=== PATIENT | male | born 1975 | race Two or more races ===

== ENCOUNTER 2016-09-11 00:14 | Inpatient (IN) | payer OTHER ==
[~2016-09-11] VITALS: Ht 175.3 cm; Wt 122.5 kg
[~2016-09-11 00:14] MED LIST: METF500T PO
--- NOTE | 2016-09-11 01:50 | NUR ---
PT AMBULATORY TO ER BED 10, BB FAMILY; ABD PAIN, MID TO UPPER ABD, "FEELS LIKE SOMEONE KICKED ME" SINCE YESTERDAY. NAUSEA WITH VOMIT X 4 PT AOX4 RR EVEN AND UNLABORED. NO SOB NOTED. NAD NOTED. NO NVD AT THIS TIME. PT GOWNED AND PLACED ON MONITOR. WAITING FOR MD PHAN. URINE COLLECTED. CALLED LAB FOR AUTOMOBILE ASSEMBLY SUPERVISOR.
[2016-09-11] MEDS ORDERED: MORPHINE SULFATE INJ 2 MG/ML DISP.SYRIN IV ONE ×3 (02:00→08:00)
[2016-09-11] MEDS ORDERED: IV NS 0.9% 1,000 ML BAG IV ONE (02:00)
[2016-09-11] MEDS ORDERED: ONDANSETRON HCL/PF 4 MG/2 ML VIAL IVP ONE (02:00)
[2016-09-11 02:14] LABS: APPEARANCE,URINE CLEAR (CLEAR); BILIRUBIN,URINE NEGATIVE (NEGATIVE); BLOOD, URINE TRACE-INTA Ery/uL (NEGATIVE); COLOR,URINE YELLOW (YELLOW); KETONES,URINE NEGATIVE (NEGATIVE); LEUKOCYTE ESTERASE ,URINE NEGATIVE (NEGATIVE); NITRITE, URINE NEGATIVE (NEGATIVE); PROTEIN,URINE NEGATIVE (NEGATIVE); UGLUCOSE 3+ mg/dL (NEGATIVE); UROBILINOGEN,URINE 0.2 EU/dL (0.2)
--- NOTE | 2016-09-11 02:25 | NUR ---
PT TO CT.
[2016-09-11 02:29] LABS: BASOPHILS % (AUTO) 0.3 % (0.0-2.0); EOSINOPHILS % (AUTO) 0.2 % (0.0-6.0); HEMATOCRIT 49 % (39-51); HEMOGLOBIN 16.8 g/dL (13.5-17.5); LYMPHOCYTES # (AUTO) 1.2 /CMM (0.8-4.8); MEAN CORPUSCULAR HEMOGLOBIN 29 PG (26.0-33.0); MEAN CORPUSCULAR HGB CONC 34 g/dl (31.0-36.0); MEAN CORPUSCULAR VOLUME 85 fL (80-96); MONOCYTES # (AUTO) 0.7 /CMM (0.1-1.30); MONOCYTES % (AUTO) 5.8 % (2.0-12.0); NEUTROPHILS # (AUTO) 10.8 /CMM (1.8-8.9); NEUTROPHILS % (AUTO) 84.7 % (43.0-81.0); PLATELET COUNT (AUTO) 358 /CMM (150-450); RDW COEFFICIENT OF VARIATION 13.2 (11.5-15.0); RED BLOOD CELL COUNT(AUTO) 5.75 MIL/uL (4.5-6.0); WHITE BLOOD COUNT (AUTO) 12.8 K/uL (4.3-11.0)
[2016-09-11 02:33] LABS: BACTERIA,URINE None seen /HPF (None Seen); RBC,URINE 0-2 /HPF (0-2); SQUAMOUS EPITHELIAL CELL,UR None Seen /HPF (None Seen); WBC,URINE NONE SEEN /HPF (0-3)
--- NOTE | 2016-09-11 02:39 | NUR ---
PT RETURNED FROM CT.
[2016-09-11] MEDS ORDERED: ONDANSETRON HCL/PF 4 MG/2 ML VIAL ONE (02:41)
[2016-09-11] MEDS ORDERED: MORPHINE SULFATE INJ 4 MG/ML DISP.SYRIN ONE ×2 (02:41→07:59)
[2016-09-11 02:49] LABS: ALANINE AMINOTRANSFERASE 165 U/L (12-78); ALBUMIN 4.2 g/dL (3.4-5.0); ALKALINE PHOSPHATASE 91 U/L (46-116); ASPARTATE AMINOTRANSFERASE 224 U/L (15-37); BILIRUBIN,DIRECT 1.1 mg/dL (0.0-0.2); BILIRUBIN,TOTAL 2.2 mg/dL (0.2-1.0); CALCIUM, SERUM 9.7 mg/dL (8.5-10.1); CARBON DIOXIDE 31 mmol/L (21-32); CHLORIDE 96 mmol/L (98-107); CREATININE 0.8 mg/dL (0.6-1.3); GLUCOSE 348 mg/dL (74-106); LIPASE 82 U/L (73-393); POTASSIUM 3.7 mmol/L (3.5-5.1); SODIUM SERUM 134 mmol/L (136-145); TOTAL PROTEIN, SERUM 8.5 g/dL (6.4-8.2); UREA NITROGEN, BLOOD 5 mg/dL (7-18)
[2016-09-11 02:50] LABS: TROPONIN I < 0.017 ng/mL (0.00-0.056)
--- NOTE | 2016-09-11 04:35 | NUR ---
US TECH AT BEDSIDE
--- NOTE | 2016-09-11 05:56 | NUR ---
MARQUES [phone]
--- NOTE | 2016-09-11 06:03 | NUR ---
DR. BERGMAN AT BEDSIDE SPEAKING TO PT REGARDING PENDING RESULTS.
--- NOTE | 2016-09-11 07:10 | NUR ---
REPORT GIVEN TO STEPHANIE RAO FOR CONTINUE OF CARE.
--- NOTE | 2016-09-11 07:12 | NUR ---
CALLED [facility], SPOKE TO EVELINA, WILL FAX OVER US GALLBLADDER RESULTS.
--- NOTE | 2016-09-11 07:29 | NUR ---
DR. LAWLER SPEAKING TO PT REGARDING RESULTS.
--- NOTE | 2016-09-11 07:35 | NUR ---
CALLED DR NELIDA PARMAR SURGEON CONSULT SPOKE TO DR LAWLER
--- NOTE | 2016-09-11 07:54 | NUR ---
CALLED [facility] --- ITS DEANN PORTER / CHEI[facility]
[2016-09-11] MEDS ORDERED: LISI2.5T2 PO (08:04)
[2016-09-11 08:40] LABS: INR 0.99 (0.87-1.13); PROTHROMBIN TIME 10.6 SECS (9.5-12.7)
--- NOTE | 2016-09-11 09:00 | NUR ---
RECEIVED PATIENT FROM ER TO BED 322-2. REPORT GIVEN BY JOURNALISM INSTRUCTOR NOEL. PATIENT ADMITED WITH ABD PAIN. US ABD. SHOWING FATTY INFILTRATION OF LIVER. DISTENDED GALLBLADDER WITH CHOLITHIASIS. CXR NEGATIVE. TROP NEGATIVE. PATIENT WBC ELEVATED. ALL VS WNL. IV SITE ON R AC 18G WS N/S RUNNING AT 75ML/HR. PATIENT IS AOX4. PATIENT IS FULLY AMBULATORY. SKIN IS INTACT. BED IN THE LOWEST POSITION WITH SIDE RAILS UP X2. CALL LIGHT IN REACH. WILL CONTINUE TO MONITOR AND ASSESS PATIENT.
[2016-09-11 10:12] VITALS: BP 111/70
[2016-09-11] MEDS ORDERED: ONDANSETRON HCL/PF 4 MG/2 ML VIAL IVP PRN (12:30)
[2016-09-11] MEDS: MORPHINE SULFATE INJ 2 MG/ML DISP.SYRIN IV PRN ×2 (12:34→20:46)
[2016-09-11] MEDS: IV NS 0.9% 1,000 ML IV PRN (12:34)
[2016-09-11] MEDS: PIPERACILLIN /TAZOBACTAM 3.375 G in IV D5W 50 ML IV SCH ×2 (14:19→20:33)
[2016-09-11 16:00] VITALS: BP 121/86
--- NOTE | 2016-09-11 18:24 | NUR ---
PATIENT TAKEN TO NUCLEAR MEDICINE FOR HIDA SCAN. CONSENT FORMS SIGNED AND WITNESSED. PAIN MEDICATION HELD SINCE LAST DOSE AT 1224. PATIENT TRANSPORTED IN STABLE CONDITION WILL CONTINUE TO MONITOR AND ASSESS PATIENT.
--- NOTE | 2016-09-11 19:30 | NUR ---
MS RN OPENING NOTES: PT NOT IN ROOM. PT WENT FOR SCAN.
--- NOTE | 2016-09-11 19:42 | NUR ---
RN CLOSING NOTES PATIENT IS CURRENTLY AT NUCLEAR MEDICINE RECEIVING HIDA SCAN IN NUCLEAR MEDICINE. PATIENT REPORT GIVEN TO DISTRIBUTION COORDINATOR NURSE FOR CONTINUATION OF CARE.
[2016-09-11 20:00] VITALS: BP 113/71
--- NOTE | 2016-09-11 20:00 | NUR ---
MS RN NOTES: PT BACK FROM SCAN. PT IS AWAKE, A/O X4. PT REPORTED OF PAIN IN HIS ABDOMEN. IV SITE ON R AC 18G WS N/S RUNNING AT 75ML/HR. BED KEPT IN THE LOWEST, LOCKED, POSITION WITH SIDE RAILS UP X2. CALL LIGHT IN REACH. ZOSYN FOR 1800 WILL BE ADMINISTERED DUE TO PT BEING GONE. WILL CONTINUE TO MONITOR PT.
--- NOTE | 2016-09-11 20:46 | NUR ---
MS RN NOTES: PT COMPLAINED OF 7/10 AB PAIN. PT WAS ADMINISTERED MORPHINE IV. WILL CONTINUE TO MONITOR PT.
--- NOTE | 2016-09-11 23:18 | NUR ---
MS RN NOTES: SPOKE WITH DR. KRAUSE AND INFORMED HIM THAT HIDA WAS NEGATIVE AND IF OKAY TO RESUME PT BACK ON DIET. GOT ORDER THAT PT CAN START ON FULL LIQUIDS DIET.
[2016-09-12] MEDS: PIPERACILLIN /TAZOBACTAM 3.375 G in IV D5W 50 ML IV SCH ×4 (00:18→17:53)
[2016-09-12] MEDS: IV NS 0.9% 1,000 ML IV PRN (05:27)
--- NOTE | 2016-09-12 07:20 | NUR ---
MS RN CLOSING NOTES: ALL NEEDS WERE ATTENDED AND ANTICIPATED FOR. PT IS AWAKE, A/O X4 AND RESTING IN BED. IV SITE ON R AC 18G AND IS BEING INFUSED WITH N/S RUNNING AT 75ML/HR. BED KEPT IN THE LOWEST, LOCKED, POSITION WITH SIDE RAILS UP X2. CALL LIGHT IN REACH. ENDORSED TO AM NURSE FOR TOMASA.
[2016-09-12 07:39] LABS: BASOPHILS % (AUTO) 0.1 % (0.0-2.0); EOSINOPHILS # (AUTO) 0.2 /CMM (0.0-0.7); EOSINOPHILS % (AUTO) 3.5 % (0.0-6.0); HEMATOCRIT 43 % (39-51); HEMOGLOBIN 14.9 g/dL (13.5-17.5); LYMPHOCYTES # (AUTO) 0.9 /CMM (0.8-4.8); LYMPHOCYTES % (AUTO) 17.5 % (20.0-44.0); MEAN CORPUSCULAR HEMOGLOBIN 30 PG (26.0-33.0); MEAN CORPUSCULAR HGB CONC 34 g/dl (31.0-36.0); MEAN CORPUSCULAR VOLUME 86 fL (80-96); MONOCYTES # (AUTO) 0.5 /CMM (0.1-1.30); MONOCYTES % (AUTO) 8.9 % (2.0-12.0); NEUTROPHILS # (AUTO) 3.7 /CMM (1.8-8.9); PLATELET COUNT (AUTO) 264 /CMM (150-450); RDW COEFFICIENT OF VARIATION 13.4 (11.5-15.0); RED BLOOD CELL COUNT(AUTO) 5.02 MIL/uL (4.5-6.0); WHITE BLOOD COUNT (AUTO) 5.3 K/uL (4.3-11.0)
[2016-09-12 07:55] LABS: BILIRUBIN,TOTAL 1.6 mg/dL (0.2-1.0); CALCIUM, SERUM 8.2 mg/dL (8.5-10.1); CREATININE 0.9 mg/dL (0.6-1.3); PHOSPHORUS 2.6 mg/dL (2.5-4.9); POTASSIUM 4.2 mmol/L (3.5-5.1); TOTAL PROTEIN, SERUM 7.2 g/dL (6.4-8.2)
--- NOTE | 2016-09-12 07:55 | NUR ---
RN OPENING NOTES RECEIVED PATIENT IN BED, AWAKE, HOB ELEVATED, NO SOB OR DISTRESS NOTED. A/O X1 VERBALLY RESPONSIVE AND ABLE TO MAKE NEEDS KNOWN. IV INTACT AND PATENT. KEEP PATIENT CLEAN AND COMFORTABLE IN BED, CALL LIGHT WITHIN PATIENT REACH, WILL CONTINUE TO MONITOR ACCORDINGLY. Addendum: 09/12/16 at 0759 by KIARA DIETZ RN ALERT AND ORIENTED TIMES 4
[2016-09-12 08:00] VITALS: BP 135/80
--- NOTE | 2016-09-12 10:30 | NUR ---
RN NOTES PATIENT IS AWAKE WITH NO SOB OR DISTRESS NOTED.
--- NOTE | 2016-09-12 15:30 | NUR ---
RN NOTES PATIENT IS WALKING AROUND THE FLOOR WITH NO SIGNS OF PAIN OR DISTRESS NOTED.
[2016-09-12 16:00] VITALS: BP 142/86
--- NOTE | 2016-09-12 19:30 | NUR ---
MS RN NOTES RECEIVED PT SITTING UP IN BED, WITH FAMILY AT BEDSIDE. PT IS A/O X 4. VERBALLY RESPONSIVE. NO DISTRESS, NO SOB NOTED. RESPIRATION IS EVEN AND UNLABORED. IV SITE ON LEFT AC INTACT AND PATENT, WITH NO S/ SOF INFILTRATION AT THIS TIME. IVF INFUSING WELL. PT IS AMBULATORY AMBULATORY AND CONTINENT OF BOWEL AND BLADDER. DENIES ANY PAIN OR DISCOMFORT AT THIS TIME. PLAN OF CARE DISCUSSED WITH THE PT, VERBALIZED UNDERSTANDING. ALL NEEDS ATTENDED AND MET. KEPT COMFORTABLE. CALL LIGHT WITHIN REACH. WILL CONTINUE TO MONITOR.
--- NOTE | 2016-09-12 19:58 | NUR ---
RN NOTES ALL NEEDS PROVIDED, ATTENDED, AND ANTICIPATED. KEPT PATIENT CLEAN AND COMFORTABLE IN BED. CALL LIGHT WITHIN PATIENT REACH, WILL CONTINUE TO MONITOR ACCORDINGLY. ENDORSED TO NEXT SHIFT RN TO CONTINUE CARE.
[2016-09-12 20:00] VITALS: BP_SYST 131; BP_SYST 145; BP_DIAS 85; BP_DIAS 90
[2016-09-12] MEDS ORDERED: HYDROCODONE/APAP 5/325MG 1 EACH TABLET PO ONE (21:00)
--- NOTE | 2016-09-13 | NUR ---
PT STARTED ON NPO FOR LAP NATHANIEL , PT VERBALIZED UNDERSTANDING. CONSENT SIGNED.
[2016-09-13] MEDS: PIPERACILLIN /TAZOBACTAM 3.375 G in IV D5W 50 ML IV SCH ×5 (00:09→23:48)
[2016-09-13] MEDS: IV NS 0.9% 1,000 ML IV PRN (00:21)
[2016-09-13] MEDS ORDERED: LIDOCAINE 1% INJ 50 ML MDV IJ ONE (06:44)
[2016-09-13 06:55] VITALS: BP 128/78
--- NOTE | 2016-09-13 06:58 | NUR ---
MS RN NOTES PT SITTING UP IN BED, PT IS A/O X 4. VERBALLY RESPONSIVE. NO DISTRESS, NO SOB NOTED. RESPIRATION IS EVEN AND UNLABORED. IV SITE ON RAC INTACT AND PATENT, WITH NO S/ SOF INFILTRATION AT THIS TIME. IVF INFUSING WELL. PT IS AMBULATORY AND CONTINENT OF BOWEL AND BLADDER. DENIES ANY PAIN OR DISCOMFORT AT THIS TIME. ALL NEEDS ATTENDED AND MET. FOR SX TODAY . PT VERBALIZED UNDERSTANDING. KEPT COMFORTABLE. CALL LIGHT WITHIN REACH. WILL ENDORSE TO NEXT SHIFT FOR TOMASA.
[2016-09-13] MEDS ORDERED: METOCLOPRAMIDE HCL 10 MG/2 ML VIAL ONE (07:09)
[2016-09-13] MEDS ORDERED: MIDAZOLAM HCL 2 MG/2ML VIAL ONE (07:09)
[2016-09-13] MEDS ORDERED: FENTANYL PF 250MCG/5ML AMPUL ONE (07:09)
[2016-09-13] MEDS ORDERED: ROCURONIUM BROMIDE 50 MG/5 ML ONE (07:10)
[2016-09-13] MEDS ORDERED: FENTANYL PF 100MCG/2ML AMPUL ONE (07:10)
--- NOTE | 2016-09-13 07:10 | NUR ---
PT WAS PICKED BY OR STAFF FOR SURGERY. PT IS A/O X 4 IN STABLE CONDITION.
[2016-09-13] MEDS ORDERED: SUCCINYLCHOLINE CHLORIDE 20 MG/ML VIAL ONE (07:11)
--- NOTE | 2016-09-13 08:10 | NUR ---
RN NOTES PATIENT WENT DOWN FOR SURGERY.
[2016-09-13] MEDS ORDERED: IOHEXOL 240MG/ML 50 ML IV ONE (08:24)
[2016-09-13] MEDS ORDERED: HYDROMORPHONE 2 MG/1 ML SDV ONE (10:05)
[2016-09-13] MEDS ORDERED: SENNOSIDES 8.6 MG TABLET PO PRN (10:30)
[2016-09-13] MEDS ORDERED: DOCUSATE SODIUM 250 MG CAPSULE PO PRN (10:30)
[2016-09-13] MEDS ORDERED: ACETAMINOPHEN 325 MG TABLET PO PRN (10:30)
[2016-09-13] MEDS ORDERED: HYDROMORPHONE 1 MG/1 ML DISP.SYRIN ONE (10:31)
[2016-09-13] MEDS: HYDROMORPHONE INJ 2 MG/ML DISP.SYRIN IV PRN ×2 (11:26→14:17)
[2016-09-13 11:30] VITALS: BP 168/98
[2016-09-13] MEDS: HYDROCODONE/APAP 5/325MG 1 EACH TABLET PO PRN ×3 (12:23→21:46)
[2016-09-13] MEDS: ENOXAPARIN SODIUM 40 MG/0.4 ML DISP.SYRIN SQ SCH (12:26)
[2016-09-13 15:28] LABS: EOSINOPHILS % (AUTO) 0.1 % (0.0-6.0); HEMATOCRIT 47 % (39-51); HEMOGLOBIN 15.9 g/dL (13.5-17.5); LYMPHOCYTES # (AUTO) 0.3 /CMM (0.8-4.8); MEAN CORPUSCULAR HEMOGLOBIN 29 PG (26.0-33.0); MEAN CORPUSCULAR HGB CONC 34 g/dl (31.0-36.0); MEAN CORPUSCULAR VOLUME 86 fL (80-96); MONOCYTES % (AUTO) 0.5 % (2.0-12.0); NEUTROPHILS # (AUTO) 6.8 /CMM (1.8-8.9); NEUTROPHILS % (AUTO) 95.4 % (43.0-81.0); PLATELET COUNT (AUTO) 339 /CMM (150-450); RDW COEFFICIENT OF VARIATION 13.4 (11.5-15.0); RED BLOOD CELL COUNT(AUTO) 5.47 MIL/uL (4.5-6.0); WHITE BLOOD COUNT (AUTO) 7.1 K/uL (4.3-11.0)
[2016-09-13 15:52] LABS: ALBUMIN 3.4 g/dL (3.4-5.0); BILIRUBIN,TOTAL 0.7 mg/dL (0.2-1.0); CALCIUM, SERUM 8.5 mg/dL (8.5-10.1); MAGNESIUM 1.6 mg/dL (1.8-2.4); PHOSPHORUS 4.1 mg/dL (2.5-4.9); POTASSIUM 4.3 mmol/L (3.5-5.1); TOTAL PROTEIN, SERUM 8.3 g/dL (6.4-8.2)
[2016-09-13 16:00] VITALS: BP 166/97
--- NOTE | 2016-09-13 16:10 | NUR ---
RN NOTES PAGED DR. MENJIVAR AND RECEIVED NEW ORDERS.
[2016-09-13] MEDS: HYDROMORPHONE 1 MG/1 ML DISP.SYRIN IV PRN ×2 (16:23→19:45)
[2016-09-13] MEDS ORDERED: *INSULIN REGULAR(HUMULIN R)HUM 100 UNIT/ML VIAL SQ PRN (16:30)
[2016-09-13] MEDS ORDERED: DEXTROSE 50%-WATER 50 ML DISP.SYRIN IV PRN (16:30)
[2016-09-13] MEDS: BLOOD SUGAR DIAGNOSTIC 1 EACH STRIP VI SCH ×2 (17:39→21:49)
[2016-09-13] MEDS: INSULIN REGULAR, HUMAN 100 UNIT/ML 3 ML VIAL SQ PRN (17:41)
--- NOTE | 2016-09-13 19:10 | NUR ---
MS RN NOTES RECEIVED PT IN BED, A/O X 4. VERBALLY RESPONSIVE. NO DISTRESS, NO SOB NOTED. RESPIRATION IS EVEN AND UNLABORED. IV SITE ON LEFT AC INTACT AND PATENT, WITH NO S/ SOF INFILTRATION AT THIS TIME. IVF INFUSING WELL. PT AMBULATORY. DENIES ANY PAIN OR DISCOMFORT AT THIS TIME. ON S/P LAP NATHANIEL WITH 3 INCISIONS ON ABDOMEN, NO BLEEDING, NO S/S OF INFECTION. ALL NEEDS ATTENDED AND MET. KEPT COMFORTABLE. CALL LIGHT WITHIN REACH. WILL CONTINUE TO MONITOR.
[2016-09-13 20:08] VITALS: BP 195/104
[2016-09-13] MEDS ORDERED: HYDROCODONE/APAP 5/325MG 1 EACH TABLET ONE (21:41)
--- NOTE | 2016-09-13 23:54 | NUR ---
TRANSFUSED 1 UNIT OF PRBC, WITH NO ADVERSE REACTIONS NOTED. PT STABLE. WILL CONT TO MONITOR. Addendum: 09/14/16 at 0329 by ANDREW KEATING RN TAWANDA: INCORRECT PATIENT DOCUMENTATION
[2016-09-14] MEDS: HYDROMORPHONE 1 MG/1 ML DISP.SYRIN IV PRN ×3 (00:08→08:04)
[2016-09-14] MEDS ORDERED: HYDROCODONE/APAP 5/325MG 1 EACH TABLET ONE ×2 (01:56→06:39)
[2016-09-14] MEDS: HYDROCODONE/APAP 5/325MG 1 EACH TABLET PO PRN ×2 (01:57→06:43)
[2016-09-14] MEDS: IV NS 0.9% 1,000 ML IV PRN (04:08)
[2016-09-14 05:48] LABS: BASOPHILS % (AUTO) 0.1 % (0.0-2.0); EOSINOPHILS % (AUTO) 0.3 % (0.0-6.0); HEMATOCRIT 45 % (39-51); HEMOGLOBIN 15.5 g/dL (13.5-17.5); LYMPHOCYTES # (AUTO) 1.4 /CMM (0.8-4.8); LYMPHOCYTES % (AUTO) 15.8 % (20.0-44.0); MEAN CORPUSCULAR HEMOGLOBIN 30 PG (26.0-33.0); MEAN CORPUSCULAR HGB CONC 35 g/dl (31.0-36.0); MEAN CORPUSCULAR VOLUME 86 fL (80-96); MONOCYTES # (AUTO) 0.8 /CMM (0.1-1.30); MONOCYTES % (AUTO) 8.8 % (2.0-12.0); NEUTROPHILS # (AUTO) 6.8 /CMM (1.8-8.9); PLATELET COUNT (AUTO) 347 /CMM (150-450); RDW COEFFICIENT OF VARIATION 13.1 (11.5-15.0)
[2016-09-14] MEDS: PIPERACILLIN /TAZOBACTAM 3.375 G in IV D5W 50 ML IV SCH ×3 (05:54→17:19)
[2016-09-14] MEDS: BLOOD SUGAR DIAGNOSTIC 1 EACH STRIP VI SCH ×2 (06:04→11:31)
[2016-09-14 06:05] LABS: ALBUMIN 3.1 g/dL (3.4-5.0); BILIRUBIN,TOTAL 0.6 mg/dL (0.2-1.0); CALCIUM, SERUM 8.9 mg/dL (8.5-10.1); CREATININE 0.7 mg/dL (0.6-1.3); MAGNESIUM 1.8 mg/dL (1.8-2.4); PHOSPHORUS 3.1 mg/dL (2.5-4.9); POTASSIUM 3.8 mmol/L (3.5-5.1); TOTAL PROTEIN, SERUM 7.7 g/dL (6.4-8.2)
[2016-09-14] MEDS: INSULIN REGULAR, HUMAN 100 UNIT/ML 3 ML VIAL SQ PRN ×3 (06:10→17:31)
--- NOTE | 2016-09-14 06:53 | NUR ---
MS RN NOTES PT IN BED, AWAKE, WATCHING TV AT THIS TIME. VERBALLY RESPONSIVE. A/O X 4. VERBALLY RESPONSIVE. NO DISTRESS, NO SOB NOTED. RESPIRATION IS EVEN AND UNLABORED. CURRENT DIET TAM WELL. IV SITE ON LEFT AC INTACT AND PATENT, WITH NO S/ S OF INFILTRATION AT THIS TIME. IVF INFUSING WELL. PT AMBULATORY. DENIES ANY PAIN OR DISCOMFORT AT THIS TIME. ON S/P LAP NATHANIEL WITH 3 INCISIONS ON ABDOMEN, NO BLEEDING, NO S/S OF INFECTION. ALL NEEDS ATTENDED AND MET. KEPT COMFORTABLE. CALL LIGHT WITHIN REACH. WILL ENDORSE TO NEXT SHIFT FOR TOMASA.
--- NOTE | 2016-09-14 07:09 | NUR ---
RN MS OPENING NOTES RECEIVED PATIENT IN BED, AWAKE, HOB ELEVATED, NO SOB OR DISTRESS NOTED. A/O X4 VERBALLY RESPONSIVE AND ABLE TO MAKE NEEDS KNOWN. IV INTACT AND PATENT. KEEP PATIENT CLEAN AND COMFORTABLE IN BED, CALL LIGHT WITHIN PATIENT REACH, WILL CONTINUE TO MONITOR ACCORDINGLY.
[2016-09-14 08:00] VITALS: BP 162/99
[2016-09-14] MEDS: ENOXAPARIN SODIUM 40 MG/0.4 ML DISP.SYRIN SQ SCH (08:03)
--- NOTE | 2016-09-14 09:35 | NUR ---
RN NOTES PATIENT IS LYING DOWN IN BED WITH NO S/S OF INFECTION. SURGICAL SITE HAS NO BLEEDING REDNESS. WILL CONTINUE MONITORING ACCORDINGLY.
--- NOTE | 2016-09-14 11:50 | NUR ---
RN NOTES PATIENT IS WITH VISITOR AT BEDSIDE WITH NO SOB OR DISTRESS NOTED.
[2016-09-14] MEDS ORDERED: hydrALAZINE HCL 25 MG TABLET PO PRN (12:30)
[2016-09-14] MEDS ORDERED: BISACODYL (5 MG) 5 MG TABLET.DR PO PRN (12:30)
[2016-09-14] MEDS ORDERED: POLYETHYLENE GLYCOL 3350 17 GM POWD.PACK PO PRN (12:30)
[2016-09-14] MEDS ORDERED: DEXTROSE 50%-WATER 50 ML DISP.SYRIN IV PRN (12:30)
[2016-09-14] MEDS ORDERED: *INSULIN REGULAR(HUMULIN R)HUM 100 UNIT/ML VIAL SQ PRN (12:30)
[2016-09-14] MEDS: BLOOD SUGAR DIAGNOSTIC 1 EACH STRIP IN SCH ×3 (12:48→21:58)
[2016-09-14] MEDS: METFORMIN 500 MG TABLET PO SCH ×2 (12:48→16:37)
[2016-09-14] MEDS: LISINOPRIL (20MG) 20 MG TABLET PO SCH (12:49)
[2016-09-14] MEDS ORDERED: HYDROMORPHONE 1 MG/1 ML DISP.SYRIN IV PRN (13:00)
--- NOTE | 2016-09-14 14:42 | NUR ---
RN NOTES PATIENT IS AMBULATING IN THE HALLWAY WITH NO SOB OR DISTRESS NOTED.
[2016-09-14 16:00] VITALS: BP 168/99
[2016-09-14] MEDS: HYDROCODONE/APAP 10/325MG 1 EA TABLET PO PRN ×2 (17:32→21:37)
[2016-09-14 20:05] VITALS: BP 145/97
[2016-09-15] MEDS: PIPERACILLIN /TAZOBACTAM 3.375 G in IV D5W 50 ML IV SCH ×2 (01:04→06:10)
[2016-09-15] MEDS: HYDROCODONE/APAP 10/325MG 1 EA TABLET PO PRN ×3 (01:05→10:19)
[2016-09-15] MEDS: BLOOD SUGAR DIAGNOSTIC 1 EACH STRIP IN SCH (06:10)
[2016-09-15 06:14] LABS: BASOPHILS % (AUTO) 0.2 % (0.0-2.0); EOSINOPHILS # (AUTO) 0.1 /CMM (0.0-0.7); EOSINOPHILS % (AUTO) 2.1 % (0.0-6.0); HEMATOCRIT 44 % (39-51); LYMPHOCYTES # (AUTO) 1.9 /CMM (0.8-4.8); LYMPHOCYTES % (AUTO) 28.8 % (20.0-44.0); MEAN CORPUSCULAR HEMOGLOBIN 29 PG (26.0-33.0); MEAN CORPUSCULAR HGB CONC 34 g/dl (31.0-36.0); MEAN CORPUSCULAR VOLUME 86 fL (80-96); MONOCYTES # (AUTO) 0.7 /CMM (0.1-1.30); MONOCYTES % (AUTO) 10.3 % (2.0-12.0); NEUTROPHILS # (AUTO) 3.9 /CMM (1.8-8.9); NEUTROPHILS % (AUTO) 58.6 % (43.0-81.0); PLATELET COUNT (AUTO) 326 /CMM (150-450); RDW COEFFICIENT OF VARIATION 13.3 (11.5-15.0); WHITE BLOOD COUNT (AUTO) 6.6 K/uL (4.3-11.0)
[2016-09-15] MEDS: INSULIN REGULAR, HUMAN 100 UNIT/ML 3 ML VIAL SQ PRN (06:25)
--- NOTE | 2016-09-15 06:32 | NUR ---
MS RN NOTES AWAKE & RESPONSIVE. NOT IN ANY DISTRESS. NO SOB NOTED. DENIES ANY PAIN OR DISCOMFORT AT THIS TIME. WITH IV-HL PATENT & INTACT. MONITORED ACCORDINGLY. CALL LIGHT WITHIN REACH. BED IN LOWEST POSITION. SR UP X 2 FOR SAFETY. WILL ENDORSE TO NEXT SHIFT.
[2016-09-15 06:43] LABS: CALCIUM, SERUM 8.9 mg/dL (8.5-10.1); MAGNESIUM 1.6 mg/dL (1.8-2.4); PHOSPHORUS 4.2 mg/dL (2.5-4.9); POTASSIUM 4.2 mmol/L (3.5-5.1)
--- NOTE | 2016-09-15 07:10 | NUR ---
MS RN OPENING RECEIVED PATIENT A/OX4 DENIES SOB, DIFFICULTY BREATHING AND PAIN MANAGED WITH PRN NORCO. PATIENT PASSING GAS AND HAVING WNL BM. NO COMPLICATIONS NO COMPLAINTS FROM PATIENT. PATIENT STATES HE WANTS TO BE DC'D [facility]. WILL NOTIFY MD. ALL NEEDS IN REACH, ICE ON STOMACH AND WILL ROUND Q2H OR LESS PER NEEDS.
--- NOTE | 2016-09-15 07:39 | NUR ---
MS RN NOTES NOTIFIED MD GARCIA PATIENT WOULD LIKE TO GO [facility]. AWARE. NOTIFIED MD PATIENT MAG LOW 1.6.PER MD GIVE 800MG PO MAG OXIDE ONCE
[2016-09-15 08:00] VITALS: BP 140/87
[2016-09-15] MEDS ORDERED: MAGNESIUM OXIDE 400 MG TABLET PO ONE (08:00)
[2016-09-15 08:25] VITALS: BP 140/87
[2016-09-15] MEDS: LISINOPRIL (20MG) 20 MG TABLET PO SCH (08:25)
[2016-09-15] MEDS: METFORMIN 500 MG TABLET PO SCH (08:25)
[2016-09-15] MEDS: ENOXAPARIN SODIUM 40 MG/0.4 ML DISP.SYRIN SQ SCH (08:29)
--- NOTE | 2016-09-15 10:22 | NUR ---
MS RN NOTES DR GARCIA AT BEDSIDE
--- NOTE | 2016-09-15 11:14 | NUR ---
MS RN NOTES DR GARCIA WROTE RX FOR NORCO AND GAVE TO PATIENT. PATIENT EDUCATED ON DC MATERIAL AND ALL PRINTOUTS.IV REMOVED WITH PRESSURE AND DRESSING APPLIED NO BLEEDING NOTED. PATIENT SIGNED DC MATERIAL AND STATED UNDERSTANDING. ALL BELONGINGS ACCOUNTED FOR AND SIGNED. PATIENT SON TO PICK HIM UP.
--- NOTE | 2016-09-15 11:40 | NUR ---
MS MAITRE D' PATIENT LEFT IN STABLE CONDITION NO COMPLICATIONS AND PICKED UP BY SON.
== END 2016-09-15 11:40 | disposition home or self-care (01) | DRG 417 ==
LOC: ER 00:14 → MED 08:38
PROVIDERS: ADMIT Nurse Practitioner Acute Care; ATTEND Nurse Practitioner Acute Care
PROC: 0FB04ZX Excision of Liver, Percutaneous Endoscopic Approach, Diagnostic (ICD-10-PCS; principal; 2016-09-13 08:15)
PROC: BF131ZZ Fluoroscopy of Gallbladder and Bile Ducts using Low Osmolar Contrast (ICD-10-PCS; principal; 2016-09-13 08:15)
PROC: 0FT44ZZ Resection of Gallbladder, Percutaneous Endoscopic Approach (ICD-10-PCS; principal; 2016-09-13 08:15)
DX: K80.00 Calculus of gallbladder with acute cholecystitis without obstruction (principal); E43 Unspecified severe protein-calorie malnutrition; E87.1 Hypo-osmolality and hyponatremia; Z68.41 Body mass index [BMI] 40.0-44.9, adult; I10 Essential (primary) hypertension; E66.01 Morbid (severe) obesity due to excess calories; E11.65 Type 2 diabetes mellitus with hyperglycemia; K76.0 Fatty (change of) liver, not elsewhere classified; E83.51 Hypocalcemia; Z82.49 Family history of ischemic heart disease and other diseases of the circulatory system; Z80.0 Family history of malignant neoplasm of digestive organs; M54.30 Sciatica, unspecified side; R16.0 Hepatomegaly, not elsewhere classified; K40.20 Bilateral inguinal hernia, without obstruction or gangrene, not specified as recurrent; K82.8 Other specified diseases of gallbladder; Z79.84 Long term (current) use of oral hypoglycemic drugs
CPT/HCPCS: 36415; 71010-TC; 72128-TC; 74000-TC; 76705-TC; 78226; 80048-TC; 80053-TC; 80061-TC; 80076-TC; 81000-TC; 82962-TC; 83605-TC; 83690-TC; 83735-TC; 84100-TC; 84484-TC; 85025-TC; 85730-TC; 86850-TC; 87040-TC; 88304-TC; 88305-TC; 88307-TC; 88313-TC; A4606; A9537; J0330; J1170; J1650; J1815; J2250; J2270; J2405; J2543; J2765; J3010; J3490; J7030; J7060; Q9966; Z7610

== ENCOUNTER 2017-12-12 10:20 | Emergency (ER) ==
[~2017-12-12] VITALS: Ht 175.3 cm; Wt 99.8 kg
[~2017-12-12 10:20] MED LIST changes: +LISI2.5T2 PO
[2017-12-12] MEDS ORDERED: IBUPROFEN 400 MG TABLET ONE (10:50)
[2017-12-12] MEDS ORDERED: HYDROMORPHONE 1 MG/1 ML DISP.SYRIN ONE (10:50)
[2017-12-12] MEDS ORDERED: IBUPROFEN 400 MG TABLET PO ONE (11:00)
[2017-12-12] MEDS ORDERED: HYDROMORPHONE 1 MG/1 ML DISP.SYRIN IM ONE (11:00)
--- NOTE | 2017-12-12 11:00 | NUR ---
PT BIB S. COMPLAINING OF "L LEG, BACK PAIN". HX OF CHRONIC PAIN. AOX4, NO ACUTE DISTRESS NOTED. WILL CONT TO MONITOR. MD AT BEDSIDE.
[2017-12-12 11:18] VITALS: BP 167/110
--- NOTE | 2017-12-12 11:21 | NUR ---
PT BEING DISCHARGED HOME. AWAITING FAMILY TO TIP STITCHER. GIVEN INSTRUCTIONS ABOUT MEDICATIONS, VERBALIZED UNDERSTANDING. AWAITING PICKUP.
== END 2017-12-12 11:24 | disposition home or self-care (01) ==
LOC: ER 10:22
DX: M54.16 Radiculopathy, lumbar region (principal); I16.0 Hypertensive urgency; I10 Essential (primary) hypertension; E11.9 Type 2 diabetes mellitus without complications; M54.30 Sciatica, unspecified side; Z60.2 Problems related to living alone; Z79.84 Long term (current) use of oral hypoglycemic drugs; Z79.899 Other long term (current) drug therapy
CPT/HCPCS: 96372; 99283; J1170; A4606; Z7610